=== PATIENT | female | born 1935 | race Caucasian/White ===

== ENCOUNTER 2021-01-02 21:54 | Emergency (ER) | payer OTHER ==
[2021-01-02 22:38] LABS: RED BLOOD COUNT 4.37 M/UL (4.00-5.10); WHITE BLOOD COUNT 6.5 K/UL (4.5-11.0)
[2021-01-02 22:55] LABS: BUN/CREATININE RATIO 29 (0-10)
== END 2021-01-03 04:00 | disposition home or self-care (01) ==
LOC: ER1 21:54
PROVIDERS: Family Medicine
DX: R47.9 Unspecified speech disturbances (principal); I48.91 Unspecified atrial fibrillation; I10 Essential (primary) hypertension; Z79.01 Long term (current) use of anticoagulants
CPT/HCPCS: 70450; 70496; 70498; 71045; 80053; 82550; 82553; 83874; 84484; 85025; 85610; 93005; 99285; Q9967